=== PATIENT | female | born 1940 | race Native Hawaiian/Other Pacific Islander ===

== ENCOUNTER → 2016-10-12 | Outpatient (CLI) | payer MEDICARE ==
--- NOTE | 2016-10-12 11:54 | XR ---
EXAMINATION TYPE: XR chest 2V, XR ribs RT DATE OF EXAM: 10/12/2016 11:34 AM COMPARISON: Prior chest x-ray and CTA chest February 14, 2016. HISTORY: Chest and right-sided rib pain 4 days after injury. TECHNIQUE: Frontal and lateral views of the chest are obtained. A frontal and oblique images of the right-sided ribs are acquired. FINDINGS: There is some linear atelectasis or scarring in the right lower lung lateral aspect redemo nstrated. There is no new suspicious focal airspace opacity, pleural effusion, or pneumothorax seen b ilaterally. The cardiac silhouette size is within normal limits with atherosclerotic change in the a ortic knob. Degenerative change bilateral acromioclavicular joints is present, right greater than lef t. Dedicated images of the right-sided ribs show no acute displaced right-sided rib fracture. Overlying soft tissue is unremarkable. IMPRESSION: 1. Minimal linear scarring or atelectasis lateral right lower lung redemonstrated. No suspicious acut e pulmonary process is seen. 2. No acute displaced right-sided rib fractures are evident.
== END | disposition home or self-care (01) ==
LOC: RADXRMAIN 11:09
PROVIDERS: ATTEND Internal Medicine
DX: R07.81 Pleurodynia (principal)
CPT/HCPCS: 71020

== ENCOUNTER → 2016-10-18 | Outpatient (CLI) | payer MEDICARE ==
--- NOTE | 2016-10-19 09:08 | MM ---
Reason for exam: screening (asymptomatic). Last mammogram was performed 1 year and 5 months ago. History: Benign left US cyst aspiration of the left breast, February 11, 2009. Benign stereotactic core biopsy of the left breast, January 29, 2003. Benign excisional biopsy of the left breast, August 03, 1998. Core biopsy of the left breast. Physical Findings: A clinical breast exam by your physician is recommended on an annual basis and results should be correlated with mammographic findings. MG 3D Screening Mammo W/Cad Bilateral CC and MLO view(s) were taken. Prior study comparison: May 10, 2015, bilateral MG screening mammo w CAD. November 05, 2013, bilateral digital screening mammo w/CAD. The breast tissue is heterogeneously dense. This may lower the sensitivity of mammography. Finding: There are typically benign round, linear calcifications in both breasts. Previous mammotome biopsy in the left breast. There is no discrete abnormality. ASSESSMENT: Benign, BI-RAD 2 RECOMMENDATION: Routine screening mammogram of both breasts in 1 year.
== END | disposition home or self-care (01) ==
LOC: RADMAMWWP 11:43
PROVIDERS: ATTEND Internal Medicine
DX: Z12.31 Encounter for screening mammogram for malignant neoplasm of breast (principal)
CPT/HCPCS: 77063; G0202

== ENCOUNTER → 2016-12-12 | Outpatient (CLI) | payer MEDICARE ==
[2016-12-12 09:12] LABS: ALT 19 U/L (9-52); AST 19 U/L (14-36); Cholesterol 153 mg/dL (<200); HDL Cholesterol 62 mg/dL (40-60); Triglycerides 109 mg/dL (<150)
== END | disposition home or self-care (01) ==
LOC: LABWHC1 08:00
PROVIDERS: ATTEND Internal Medicine Cardiovascular Disease
DX: E78.2 Mixed hyperlipidemia (principal)
CPT/HCPCS: 36415; 80061; 84450; 84460

== ENCOUNTER → 2017-11-19 | Outpatient (CLI) | payer MEDICARE ==
[2017-11-19 10:27] LABS: ALT 18 U/L (9-52); AST 17 U/L (14-36); Cholesterol 143 mg/dL (<200); HDL Cholesterol 64 mg/dL (40-60); LDL Cholesterol,Calculated 58 mg/dL (0-99); Triglycerides 107 mg/dL (<150)
== END | disposition home or self-care (01) ==
LOC: LABWHC1 08:42
PROVIDERS: ATTEND Internal Medicine Cardiovascular Disease
DX: E78.2 Mixed hyperlipidemia (principal)
CPT/HCPCS: 36415; 80061; 84450; 84460

== ENCOUNTER → 2019-09-10 | Day surgery (SDC) | payer MEDICARE ==
[~2019-09-10] MED LIST: SODIUM CHLORIDE 0.9% 500 ML 500 ML IV ONE
[2019-09-10 12:34] VITALS: BP 111/59; PULSE 77; RESP 16; TEMP 97.8
[2019-09-10 12:47] LABS: Calcium 8.8 mg/dL (8.4-10.2); Potassium 4.3 mmol/L (3.5-5.1)
--- NOTE | 2019-09-29 09:53 | IR ---
EXAMINATION TYPE: IR venogram upper ext RT DATE OF EXAM: 09/19/2019 COMPARISON: NONE HISTORY: Port-A-Cath a gram. Findings: No blood return could be obtained from the port. Fluoroscopy demonstrated a kink at the level of the right axilla subclavian junction a few centimeters from the port. IMPRESSION: 1. There is a kink of the catheter at the axilla subclavian junction likely resulting in obstruction.
== END ==
LOC: CATHCVL 11:53
PROVIDERS: ATTEND Radiology Diagnostic Radiology
DX: T85.618A Breakdown (mechanical) of other specified internal prosthetic devices, implants and grafts, initial encounter (principal); C16.3 Malignant neoplasm of pyloric antrum; E11.51 Type 2 diabetes mellitus with diabetic peripheral angiopathy without gangrene; E11.22 Type 2 diabetes mellitus with diabetic chronic kidney disease; N18.9 Chronic kidney disease, unspecified; I08.0 Rheumatic disorders of both mitral and aortic valves; F17.210 Nicotine dependence, cigarettes, uncomplicated; Z90.49 Acquired absence of other specified parts of digestive tract; Z90.710 Acquired absence of both cervix and uterus; Z96.653 Presence of artificial knee joint, bilateral; Z98.42 Cataract extraction status, left eye; Z98.41 Cataract extraction status, right eye; Z98.890 Other specified postprocedural states; Z79.4 Long term (current) use of insulin; Z79.891 Long term (current) use of opiate analgesic; Z79.899 Other long term (current) drug therapy; Z88.6 Allergy status to analgesic agent; Z88.5 Allergy status to narcotic agent
CPT/HCPCS: 36598; 80048

== ENCOUNTER → 2019-09-10 | Outpatient (CLI) | payer MEDICARE ==
--- NOTE | 2019-09-10 14:27 | CT ---
EXAMINATION TYPE: CT angio chest DATE OF EXAM: 09/10/2019 COMPARISON: CT 02/14/2016 HISTORY: Shortness of breath CT DLP: 173.4 mGycm Automated exposure control for dose reduction was used. CONTRAST: CTA scan of the thorax is performed with IV Contrast, patient injected with 58 mL of Isovue 370, pulm onary embolism protocol. MIP images are created and reviewed. 3D reconstructed images are created o n an independent workstation and reviewed. FINDINGS: LUNGS: There are some bandlike areas of decreased attenuation at the lung bases. There is evidence of probable air trapping is noted, some scattered emphysematous changes. There is no pleural effusion o r pneumothorax seen. The tracheobronchial tree is patent. AORTA: No additional significant abnormality is seen. MEDIASTINUM: There is satisfactory enhancement of the pulmonary artery and its branches, there is no CT evidence for pulmonary embolism. There are no greater than 1 cm hilar or mediastinal lymph nodes. No pericardial effusion is seen. The pulmonary artery is dilated. There are coronary artery calcif ications present. OTHER: Pneumobilia is suspected, correlate for appropriate surgical history. IMPRESSION: NO EVIDENT PULMONARY EMBOLISM. Correlate for emphysema, COPD. Coronary artery disease. Pneumobilia, c orrelate for appropriate procedural history
== END | disposition home or self-care (01) ==
LOC: RADCTMAIN 11:58
PROVIDERS: ATTEND Internal Medicine Hematology & Oncology
DX: I25.10 Atherosclerotic heart disease of native coronary artery without angina pectoris (principal); R06.02 Shortness of breath; Z88.5 Allergy status to narcotic agent; Z88.6 Allergy status to analgesic agent
CPT/HCPCS: 71275; Q9967

== ENCOUNTER 2020-01-28 11:30 | Day surgery (SDC) | payer MEDICARE ==
[2020-01-27 12:10] VITALS: BMI 24.7
[2020-01-28 11:57] LABS: Glucose,Whole Blood 160 mg/dL (75-99)
[2020-01-28 12:03] VITALS: BP 139/62; PULSE 67; RESP 16; TEMP 98.5
== END 2020-01-28 13:03 | disposition home or self-care (01) ==
LOC: CATHCVL 11:30
PROVIDERS: ATTEND Radiology Diagnostic Radiology
DX: T85.618A Breakdown (mechanical) of other specified internal prosthetic devices, implants and grafts, initial encounter (principal); C16.3 Malignant neoplasm of pyloric antrum; B37.0 Candidal stomatitis; K12.31 Oral mucositis (ulcerative) due to antineoplastic therapy; G89.3 Neoplasm related pain (acute) (chronic); M79.89 Other specified soft tissue disorders; R11.2 Nausea with vomiting, unspecified; F17.210 Nicotine dependence, cigarettes, uncomplicated; E28.319 Asymptomatic premature menopause; Z88.6 Allergy status to analgesic agent; Z88.5 Allergy status to narcotic agent; Z79.899 Other long term (current) drug therapy; Z79.51 Long term (current) use of inhaled steroids; Z79.4 Long term (current) use of insulin; Z79.891 Long term (current) use of opiate analgesic; Z90.49 Acquired absence of other specified parts of digestive tract; Z98.890 Other specified postprocedural states; Z98.41 Cataract extraction status, right eye; Z98.42 Cataract extraction status, left eye; Z90.710 Acquired absence of both cervix and uterus; Z96.653 Presence of artificial knee joint, bilateral; Z86.19 Personal history of other infectious and parasitic diseases; Z66 Do not resuscitate
CPT/HCPCS: 36598

== ENCOUNTER → 2020-03-23 | Outpatient (CLI) | payer MEDICARE ==
[2020-03-23 13:38] LABS: African American GFR (CKD) >90 (>60 ml/min/1.73 sqM); Blood Urea Nitrogen 14 mg/dL (7-17); Non-African American GFR(CKD) 86 (>60 ml/min/1.73 sqM)
--- NOTE | 2020-03-23 14:44 | CT ---
EXAMINATION TYPE: CT ChestAbdPelvis w con DATE OF EXAM: 03/23/2020 COMPARISON: CTA chest September 10, 2019. HISTORY: Stomach cancer, observe for METS CT DLP: 474.4 mGycm. Automated Exposure Control for Dose Reduction was Utilized. CONTRAST: CT scan of the thorax, abdomen and pelvis is performed with oral and with IV Contrast, patient inject ed with 100 mL of Isovue 300. FINDINGS: LUNGS: Stable slightly more nodular right apical pleural thickening extending anteriorly echo image 1 0. [id number] linear scarring and/or atelectasis throughout both lower lungs. No new pulmonary nodules or masses. No pleural effusion or pneumothorax seen. MEDIASTINUM: There are no greater than 1 cm hilar or mediastinal lymph nodes. No pericardial effusi on is seen. Cardiomegaly is present. Coronary artery calcification and/or stents again seen. OTHER: Stable right internal jugular Mediport catheter.. LIVER/GB: Pneumobilia redemonstrated. Gallbladder note is surgically absent. PANCREAS: No significant abnormality is seen. SPLEEN: No significant abnormality is seen. ADRENALS: Stable slight 1.1 cm nodular prominence posterior inferior right adrenal gland axial image 56. Prominent vessel in region of left adrenal gland medial to spleen redemonstrated. KIDNEYS: Symmetric cortical medullary uptake and excretion without hydronephrosis seen bilaterally. L ow lying bladder with mild to moderate abnormal concentric wall thickening and lobulation. BOWEL: Oral contrast does not reach level of the terminal ileum making evaluation of distal bowel sub optimal. Contrast is passed through stomach making evaluation slightly suboptimal. There is moderate- to-severe prominence of gastric folds in the fundus. There is moderate to severe wall thickening of t he colon from the cecum through the distal left colon. There is short segment of cecal prominence wit hout suspicious wall thickening and an moderate concentric wall thickening in the remainder of the si gmoid colon extending into the rectum. No suspicious small bowel dilatation. There is mild to moderat e wall thickening of level terminal ileum also felt present on coronal image 40 right lower quadrant. GENITAL ORGANS: Uterus is surgically absent markedly atrophic. There is 3.1 x 2.8 cm left pelvic lesi on axial Image 103 could reflect remnant ovary or abnormal adenopathy, clinical correlation advised. Smaller lesion right adnexa image 99. Some calcifications in both lesions inferiorly. Ovaries are aureliano pected. LYMPH NODES: No greater than 1cm abdominal or pelvic lymph nodes are appreciated. OSSEOUS STRUCTURES: Grade 1 retrolisthesis L3 on L4. Moderate disc space narrowing and vacuum disc ph enomenon L3-L4 and L4-L5 levels. Mild/moderate multilevel spurring in the thoracolumbar spine. OTHER: Moderate calcified plaque of the aorta extends into the branch vessels.. IMPRESSION: 1. Fairly prominent diffuse colitis. Suspect some inflammatory change to level of terminal ileum. Di fferential includes infectious and inflammatory etiologies, pseudomembranous colitis is in differenti al. Correlate clinically. Possible fundal gastritis. Correlate clinically. 2. No obvious mass or adenopathy to suggest metastatic disease. Pelvic lesion strongly favor remnant ovaries. 3. Low lying bladder with lobulated wall that has abnormal thickening. Cannot exclude acute cystitis in the appropriate clinical setting. Correlate clinically. A Yellow level critical message alert has been initiated for Jose Alejandro Rivas MD via the [facility] on 03/23/2020 2:41 PM. This message alert has been sent to Jose Alejandro Rivas MD via th e preferences provided by the clinician for the receipt of Radiology Critical Findings. Message ID [id number].
== END | disposition home or self-care (01) ==
LOC: RADCTMAIN 12:38
PROVIDERS: ATTEND Internal Medicine Hematology & Oncology
DX: Z03.89 Encounter for observation for other suspected diseases and conditions ruled out (principal); C16.3 Malignant neoplasm of pyloric antrum; K52.9 Noninfective gastroenteritis and colitis, unspecified; N73.9 Female pelvic inflammatory disease, unspecified; Q64.70 Unspecified congenital malformation of bladder and urethra; Z88.5 Allergy status to narcotic agent; Z88.6 Allergy status to analgesic agent
CPT/HCPCS: 82565; 84520; 71260; 74177; 36415; Q9967

== ENCOUNTER 2020-08-14 17:33 | Emergency (ER) | payer MEDICARE ==
[2020-08-14 17:50] VITALS: BP 151/55; TEMP 97.7
--- NOTE | 2020-08-14 18:05 | ED ---
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 The patient is currently on hospice and has been for the past month. She previously underwent treatment for her stomach cancer however has subsequently stopped treatment and opted to go on hospice. Daughter was at home with the patient when they heard a noise. She walked into the room to find her mother on the floor. Patient had reported that she had passed out. Patient had several episodes at home for which she would go unresponsive for approximately 10 seconds and then aroused. The hospice nurse was at the house who did offer that the patient could be evaluated in the ER in the daughter did agree to this. The patient states that she has been having chest pain with difficult breathing. Admits to nausea with a poor appetite. No headaches or visual changes. No fevers or chills. Denies any changes in her bowel or bladder habits. Patient does have known valvular disease. Upon arrival to the emergency department the patient is alert and oriented. She is declining an IV or laboratory studies. Daughter is at bedside and agrees to her mother's wishes. States that she got nervous and when transferred to the hospital was offered she agreed to it. No other alleviating, precipitating or modifying factors - Related Data Home Medications Medication Instructions Recorded Confirmed Beclomethasone Dipropionate [Qvar 2 puff INHALATION RT-BID 03/03/14 01/28/20 40 mcg/puff] Simvastatin [Zocor] 20 mg PO HS 03/03/14 01/28/20 Gabapentin [Neurontin] 100 - 300 mg PO HS PRN 10/28/15 01/28/20 Meclizine [Antivert] 12.5 mg PO HS 10/28/15 01/28/20 Montelukast [Singulair] 10 mg PO DAILY 10/28/15 01/28/20 lisinopriL [Zestril] 20 mg PO DAILY 10/28/15 01/28/20 Ferrous Sulfate [Feosol] 325 mg PO BID 02/14/16 01/28/20 Hydrocodone/Acetaminophen 1 tab PO Q6HR PRN 02/14/16 01/28/20 [Hydrocodon-Acetaminophen 5-325] Lidocaine 5% Oint [Xylocaine 5% 1 applic TOPICAL BID PRN 02/14/16 01/28/20 Oint] traMADol HCl [Ultram] 50 mg PO Q8H PRN 02/14/16 01/28/20 Famotidine [Pepcid] 20 mg PO DAILY 01/28/20 01/28/20 Furosemide [Lasix] 40 mg PO DAILY 01/28/20 01/28/20 Insulin Glargine [Lantus] 30 units SQ DAILY 01/28/20 01/28/20 Metoprolol Tartrate [Lopressor] 25 mg PO DAILY 01/28/20 01/28/20 Ondansetron [Zofran] 4 mg PO Q4HR PRN 01/28/20 01/28/20 Pantoprazole [Protonix] 40 mg PO DAILY 01/28/20 01/28/20 Potassium Chloride [Klor-Con 20] 20 meq PO DAILY 01/28/20 01/28/20 Sucralfate [Carafate] 1 gm PO TID 01/28/20 01/28/20 sitaGLIPtin PHOS/metFORMIN HCL 50 - 500 mg PO BID 01/28/20 01/28/20 [Janumet 50-500 mg Tablet] Previous Rx's Medication Instructions Recorded ALPRAZolam [Xanax] 0.25 mg PO DAILY PRN #20 tablet 11/17/15 Allergies Allergy/AdvReac Type Severity Reaction Status Date / Time codeine Allergy Nausea Verified 01/28/20 11:35 ibuprofen [From Motrin] Allergy Dyspnea Verified 01/28/20 11:35 propoxyphene napsylate Allergy Hallucinati Verified 01/28/20 11:35 [From Darvocet-N] ons tuberculin, purified protein Allergy Rash/Hives Verified 01/28/20 11:35 deriva [Tuberculin,Purif.Prot.Deriv.] Review of Systems ROS Statement: Those systems with pertinent positive or pertinent negative responses have been documented in the HPI. ROS Other: All systems not noted in ROS Statement are negative. Past Medical History Past Medical History: Asthma, Chest Pain / Angina, CVA/TIA, Diabetes Mellitus, GERD/Reflux, Hyperlipidemia, Hypertension, Osteoarthritis (OA) Additional Past Medical History / Comment(s): increased forgetfulness, stomach CA-dx May 2019-current continual chemo pump-,"LEAKY VALVE" HEART MURMUR, stroke 1982-no residual History of Any Multi-Drug Resistant Organisms: None Reported Past Surgical History: Breast Surgery, Cholecystectomy, Heart Catheterization, Hysterectomy, Joint Replacement, Orthopedic Surgery, Tonsillectomy Additional Past Surgical History / Comment(s): GERMAIN CATARACTS, left knee replace ment-2013, right knee replacement-11/08/15,port a cath-right chest Past Anesthesia/Blood Transfusion Reactions: No Reported Reaction Past Psychological History: Anxiety Past Alcohol Use History: None Reported Past Drug Use History: None Reported - Past Family History Sister(s) Family Medical History: [place]ocardial Infarction ([place]) Father Family Medical History: [place] Inf[place] Mother Family Medical History: [place]ocardial Infarction ([place]) Brother(s) Family Medical History: Cancer General Exam General appearance: alert, in no apparent distress Head exam: Present: atraumatic, normocephalic, normal inspection Eye exam: Present: normal appearance, PERRL, EOMI. Absent: scleral icterus, conjunctival injection, periorbital swelling ENT exam: Present: normal exam, mucous membranes moist Neck exam: Present: normal inspection. Absent: tenderness, meningismus, lymphadenopathy Respiratory exam: Present: normal lung sounds bilaterally. Absent: respiratory distress, wheezes, rales, rhonchi, stridor Cardiovascular Exam: Present: regular rate, normal rhythm, normal heart sounds. Absent: systolic murmur, diastolic murmur, rubs, gallop, clicks GI/Abdominal exam: Present: soft, normal bowel sounds. Absent: distended, tenderness, guarding, rebound, rigid Extremities exam: Present: normal inspection, full ROM, normal capillary refill. Absent: tenderness, pedal edema, joint swelling, calf tenderness Back exam: Present: normal inspection Neurological exam: Present: alert, oriented X3, CN II-XII intact Psychiatric exam: Present: normal affect, normal mood Skin exam: Present: warm, dry, intact, normal color. Absent: rash Course Vital Signs 08/14/20 08/14/20 08/14/20 17:37 17:51 18:56 Temperature 97.7 F 97.7 F 97.7 F Pulse Rate 74 73 74 Respiratory 16 14 16 Rate Blood Pressure 151/55 151/55 151/55 O2 Sat by Pulse 96 96 96 Oximetry EKG Findings - EKG Comments: EKG Findings:: EKG demonstrates a normal sinus rhythm with a ventricular rate 72. NH interval 188. QRS is 144. QTC of 43. Bifascicular block. EKG is same in appearance to previous EKG Medical Decision Making - Medical Decision Making Upon arrival the patient's placed into room 9. A thorough history and physical exam was performed. Did discuss diagnosis, differential and treatment options. Patient is alert and oriented, capable of making her own decisions and does not want anything done. Daughter is at bedside and agrees to her mother's decision. I offered laboratory studies, imaging and EKG. Patient does agree EKG but states she wants something further to include blood work or an IV. The patient is on hospice I do feel that this is appropriate. EKG is performed and compared to her previous. Patient remains alert and oriented in the emergency room without stable episode. At this time both daughter and patient agree to be transported back home on hospice. Daughter is reassured that if the patient is anything new, worsening or they do request hospital evaluation they may call EMS to have the patient transported back to the hospital. They both felt comfortable with this. She remained in stable condition was transported back home by EMS Disposition Clinical Impression: Syncope, Systolic murmur Disposition: HOME SELF-CARE Condition: Serious Instructions (If sedation given, give patient instructions): Syncope (ED) Additional Instructions: You will be discharged home on hospice. Is patient prescribed a controlled substance at d/c from ED?: No Referrals: Jose Alejandro Rivas MD [STAFF PHYSICIAN] - 1-2 days Time of Disposition: 18:05
[2020-08-14 18:57] VITALS: PULSE 74; RESP 16
== END 2020-08-14 18:57 | disposition home or self-care (01) ==
LOC: EC 17:33
DX: R55 Syncope and collapse (principal); R01.1 Cardiac murmur, unspecified; R07.9 Chest pain, unspecified; R06.02 Shortness of breath; J45.909 Unspecified asthma, uncomplicated; F41.9 Anxiety disorder, unspecified; E11.9 Type 2 diabetes mellitus without complications; K21.9 Gastro-esophageal reflux disease without esophagitis; E78.5 Hyperlipidemia, unspecified; I10 Essential (primary) hypertension; M19.90 Unspecified osteoarthritis, unspecified site; Z79.51 Long term (current) use of inhaled steroids; Z79.4 Long term (current) use of insulin; Z79.899 Other long term (current) drug therapy; Z88.5 Allergy status to narcotic agent; Z88.6 Allergy status to analgesic agent; Z88.8 Allergy status to other drugs, medicaments and biological substances; Z95.5 Presence of coronary angioplasty implant and graft; Z90.49 Acquired absence of other specified parts of digestive tract; Z90.710 Acquired absence of both cervix and uterus; Z98.42 Cataract extraction status, left eye; Z98.41 Cataract extraction status, right eye; Z96.653 Presence of artificial knee joint, bilateral; Z85.028 Personal history of other malignant neoplasm of stomach; Z92.21 Personal history of antineoplastic chemotherapy; Z85.118 Personal history of other malignant neoplasm of bronchus and lung
CPT/HCPCS: 93005; 99284